=== PATIENT | male | born 1945 | race Caucasian/White ===

== ENCOUNTER 2019-01-13 17:37 | Emergency (ER) | payer BC ==
[~2019-01-13] VITALS: Ht 170.2 cm; Wt 82.6 kg
[2019-01-13] MEDS ORDERED: SUPER THERAVIT1 EACH PO (17:53)
[2019-01-13] MEDS ORDERED: ACCUPRIL5 MG PO (17:53)
[2019-01-13] MEDS ORDERED: TOPROL XL25 MG PO (17:53)
[2019-01-13] MEDS ORDERED: FISH OIL 1,001000 M3 PO (17:54)
[2019-01-13] MEDS ORDERED: LIPITOR80 MG PO (17:54)
[2019-01-13] MEDS ORDERED: ASA81BEC PO (17:54)
[2019-01-13 18:13] LABS: ABSOLUTE EOSINOPHILS 0.2 thou/uL (0.0-0.7); ABSOLUTE LYMPHOCYTES 0.9 thou/uL (0.8-5.3); ABSOLUTE MONOCYTES 0.4 thou/uL (0.0-1.2); ABSOLUTE NEUTROPHILS 3.6 thou/uL (1.6-8.1); BASOPHILS 0.5 %; EOSINOPHILS 4.4 %; HEMATOCRIT 41.6 % (42.0-52.0); HEMOGLOBIN 14.8 gm/dL (14.0-18.0); LYMPHOCYTES 18.1 %; MCH 30.8 pg (26.0-34.0); MCHC 35.5 g/dL (28.0-37.0); MCV 86.9 fL (80.0-100.0); MONOCYTES 7.5 %; MPV 7.2 fl. (7.2-11.1); NUCLEATED RBCS 0 /100WBC; PLATELET COUNT* 166 thou/uL (150-400); POLYS 69.5 %; RBC 4.79 mil/uL (4.50-6.00); RDW-CV 13.2 % (10.5-14.5); WBC 5.2 thou/uL (4.0-11.0)
[2019-01-13 18:21] LABS: CALCIUM 8.8 mg/dL (8.5-10.1); CREATININE 1.1 mg/dL (0.6-1.3); POTASSIUM 3.6 mmol/L (3.5-5.1)
[2019-01-13 18:26] LABS: ALBUMIN 3.9 g/dL (3.4-5.0); TOTAL BILIRUBIN 0.7 mg/dL (<0.1-1.0); TOTAL PROTEIN 7.5 g/dL (6.4-8.2)
[2019-01-13] MEDS ORDERED: ATIVAN0.5 M1 PO (19:00)
[2019-01-13 19:30] VITALS: BP 135/78
--- NOTE | 2019-01-14 17:06 | EKG ---
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: : 1945 Requested By: Nasir Pedroza Order Number: [id number] MD: Karri Ray Measurements Intervals [place] Rate: 77 P: 43 NM: 144 QRS: 8 QRSD: 102 T: 12 QT: 381 QTc: 432 Interpretive Statements Sinus rhythm Borderline low voltage, extremity leads Baseline wander in lead(s) V3,V5 No previous ECG available for comparison Electronically Signed On 01-14-2019 17:05:52 [employer] by Karri Ray [email or web address] <ELECTRONICALLY SIGNED> By: Karri Ray MD, [facility] 01/14/19 1705 1803 02 Karri Ray MD, FACC /EPI
== END 2019-01-13 19:32 | disposition home or self-care (01) ==
LOC: M.ERS 17:37
PROVIDERS: Nurse Practitioner Psychiatric/Mental Health
DX: F10.20 Alcohol dependence, uncomplicated (principal); Y90.9 Presence of alcohol in blood, level not specified; T38.0X5A Adverse effect of glucocorticoids and synthetic analogues, initial encounter; F41.9 Anxiety disorder, unspecified; I10 Essential (primary) hypertension; Z88.8 Allergy status to other drugs, medicaments and biological substances; Z91.018 Allergy to other foods; Y92.89 Other specified places as the place of occurrence of the external cause